=== PATIENT | male | born 1990 | race Caucasian/White ===

== ENCOUNTER 2021-04-04 01:25 | Emergency (ER) | payer BC ==
[2021-04-04] MEDS ORDERED: Diphtheria,Pertussis(Acell),Tetanus Vaccine 0.5 ML Syringe IM ONE (01:51)
--- NOTE | 2021-04-04 02:25 | EDM.PDOC ---
ED HPI GENERAL MEDICAL PROBLEM - General Chief Complaint: Laceration Stated Complaint: CUT ON FACE Time Seen by Provider: 04/04/21 01:59 - History of Present Illness INITIAL COMMENTS - FREE TEXT/NARRATIVE: CHIEF COMPLAINT(S): Facial laceration HISTORY OF PRESENT ILLNESS: This is a 30-year-old man without any significant past medical history who presents to the emergency department with facial laceration. Patient states that he was building a metal shelf and he was using a metal ceiling builder to cut things and the wheel got loose and flew and hit the side of his face. He denies any loss of consciousness, blurred vision, numbness, tingling, weakness. He denies any nausea or vomiting. He stated there was some bleeding and is concerned that it was deep and concerned that there might be some metal in it. He does not know when his last tetanus shot was. He states that he is currently experiencing no pain. He states that the bleeding has stopped. He denies any other injuries or symptoms. REVIEW OF SYSTEMS: Constitutional: Denies fever, chills. Eyes: Denies eye pain Ears, Nose, Mouth, & Throat: Denies earache, epistaxis, blood in his mouth Cardiovascular: Denies chest pain Respiratory: Denies shortness of breath Gastrointestinal: Denies Nausea, vomiting, Skin: Positive for cut to right of face MSK: Denies joint pain Neurological: Denies blurred vision, numbness, tingling, weakness, head injury, loss of consciousness PAST MEDICAL HISTORY: As per history of present illness and as reviewed below otherwise noncontributory. SURGICAL HISTORY: As per history of present illness and as reviewed below otherwise noncontributory. SOCIAL HISTORY: As per history of present illness and as reviewed below otherwise noncontributory. FAMILY HISTORY: As per history of present illness and as reviewed below otherwise noncontributory. EXAMINATION OF ORGAN SYSTEMS/BODY AREAS: Constitutional: Blood pressure is 160/80, heart rate 92, respiratory rate 16 with oxygen saturation 99% on room air. Temperature 36.4 General: Overall well-appearing man who is in no acute distress psychiatric: Appropriate mood and affect. Eyes: No scleral icterus or conjunctival erythema pupils are equal round and reactive to light. Extraocular movements intact. ENMT: Moist mucous membranes. No pharyngeal erythema no blood in the oropharynx. No nasal septal hematoma. Bilateral tympanic membranes without any hem otympanum cardiovascular: Regular, rate, and rhythm. No gallops, murmurs, or rubs. Bilateral upper extremity pulses symmetric and intact. Respiratory: Lungs clear to auscultation bilaterally. No wheezes, rales, or rhonchi. Musculoskeletal: Normal range of motion. Skin: There is a 3 cm superficial laceration to the right side of his face along the cheekbone. This cut is not deep and it is not through and through. No evidence of foreign body on visual inspection. Neurological: Alert, GCS 15 MEDICAL DECISION MAKING AND COURSE IN THE ED WITH INTERPRETATION/REVIEW OF DIAGNOSTIC STUDIES: This is a 30-year-old man without any significant past medical history who comes to the emergency department with a superficial laceration to the right side of his face. At this time given that it is superficial I do not believe any imaging is indicated. We will thoroughly wash out the wound and prepare for suture repair. We will provide the patient with his tetanus booster. I do not believe any other labs or imaging are indicated. Laceration Repair Note Repair of the 3 cm right cheek wound was done by myself. Wound was irrigated well with saline. Local anesthesia with lidocaine was performed. No foreign bodies were noted. The wound was repaired with 6 6-0 directed nylon sutures. Wound edges approximated well. Bacitracin ointment and a sterile dressing were applied. After repair of the laceration I did discuss strict return precautions with the patient. She is to return in 5 to 7 days for stitch removal. He was amenable to discharge at this time and had no further questions. DISPOSITION: The patient was discharged home in stable condition. The patient will follow up with PCP or ER in 5 to 7 days for stitch removal CONDITION: Good PROCEDURES: Laceration repair with sutures FINAL IMPRESSION(S)/DIAGNOSES: 1. Acute right sided facial laceration status post repair Sriram Pinto M.D. Face/Facial Pain Score (Numeric/FACES): 0 - Related Data Allergies Allergy/AdvReac Type Severity Reaction Status Date / Time No Known Allergies Allergy Verified 04/04/21 01:46 Home Meds: Home Meds . [No Known Home Meds] 04/04/21 [History] Past Medical History - Past Health History Medical/Surgical History: Denies Medical/Surgical History Social & Family History - Family History Family Medical History: No Pertinent Family History - Tobacco Use Tobacco Use Status *Q: Never Tobacco User Second Hand Smoke Exposure: No - Caffeine Use Caffeine Use: Reports: None - Recreational Drug Use Recreational Drug Use: No ED ROS GENERAL - Review of Systems Review Of Systems: See Below ED EXAM, SKIN/RASH Exam: See Below Course - Vital Signs Last Recorded V/S: Last Vital Signs Temp 36.4 C 04/04/21 01:43 Pulse 92 04/04/21 01:43 Resp 16 04/04/21 01:43 BP 160/80 H 04/04/21 01:43 Pulse Ox 99 04/04/21 01:43 - Orders/Labs/Meds Meds: Medications Discontinued Medications Generic Name Dose Route Start Last Admin Trade Name Freq PRN Reason Stop Dose Admin Diphtheria/Tetanus/Acell Pertussis 0.5 ml 04/04/21 01:51 04/04/21 02:06 Diphtheria,Pertussis(Acell),Tetanus Vaccine 0.5 Ml Syringe IM 04/04/21 01:52 0.5 ml .ONCE ONE Administration Lidocaine HCl 5 ml 04/04/21 02:03 04/04/21 02:06 Lidocaine 1% 5 Ml Sdv INJECT 04/04/21 02:04 5 ml ONETIME ONE Administration Lidocaine HCl Confirm 04/04/21 02:04 04/04/21 02:12 Lidocaine 1% 5 Ml Sdv Administered 04/04/21 02:05 Not Given Dose 5 ml .ROUTE .STK-MED ONE Departure - Departure Time of Disposition: 02:25 Disposition: Home, Self-Care 01 Condition: Fair Clinical Impression: Facial laceration - Discharge Information Instructions: Laceration Care, Adult, [id number], Sutures, [place], or Adhesive Wound Closure, [id number] Referrals: PCP,None [Primary Care Provider] - Forms: ED Department Discharge Additional Instructions: You were evaluated today on an emergent basis. At this time we did stitched up the laceration to your right face. We placed 6 stitches. I do recommend to have these removed in 5 to 7 days. If you have any pus drainage or redness I would return to the emergency department. [facility] [address] [place] [id number] [facility] [address] [place] [address] The patient is informed of any results of their evaluation and diagnostic workup and all questions are answered. They are given discharge instructions and return precautions. The patient is stable for discharge. The patient states they understand and agree with the plan and that they will return if their symptoms get worse or if they have any new concerns. The following information is given to patients seen in the emergency department who are being discharged to home. This information is to outline your options for follow-up care. We provide all patients seen in our emergency department with a follow-up referral. The need for follow-up, as well as the timing and circumstances, are variable depending upon the specifics of your emergency department visit. If you don't have a primary care physician on staff, we will provide you with a referral. We always advise you to contact your personal physician following an emergency department visit to inform them of the circumstance of the visit and for follow-up with them and/or the need for any referrals to a consulting specialist. The emergency department will also refer you to a specialist when appropriate. This referral assures that you have the opportunity for follow-up care with a specialist. All of these measure are taken in an effort to provide you with optimal care, which includes your follow-up. Under all circumstances we always encourage you to contact your private physician who remains a resource for coordinating your care. When calling for follow-up care, please make the office aware that this follow-up is from your recent emergency room visit. If for any reason you are refused follow-up, please contact the [facility] Emergency Department at and asked to speak to the emergency department charge nurse. Sepsis Event Note (ED) - Evaluation Sepsis Screening Result: No Definite Risk
== END 2021-04-04 02:45 | disposition home or self-care (01) ==
LOC: MW.ED 01:25
DX: S01.81XA Laceration without foreign body of other part of head, initial encounter (principal); Z23 Encounter for immunization; W22.8XXA Striking against or struck by other objects, initial encounter
CPT/HCPCS: 12013; 90471; 90715; 99282; 99282-25

== ENCOUNTER 2022-12-15 09:03 | Emergency (ER) | payer SELFPAY ==
[2022-12-15 10:09] LABS: CARBON DIOXIDE,CO2 29.4 mmol/L (21.0-32.0)
[2022-12-15] MEDS ORDERED: Iopamidol 755 MG/ML 500 ML Multipack Bottle IVPUSH STA (11:13)
== END 2022-12-15 12:23 | disposition home or self-care (01) ==
LOC: MW.ED 09:03
DX: R10.31 Right lower quadrant pain (principal)
CPT/HCPCS: 36415; 74177; 80053; 81003; 83690; 85025; 99284; Q9967